=== PATIENT | male | born 2000 | race Caucasian/White ===

== ENCOUNTER 2021-12-10 15:48 | Emergency (ER) | payer SELFPAY ==
[~2021-12-10] VITALS: Ht 175.2 cm; Wt 61.2 kg
[2021-12-10] MEDS ORDERED: ONDANSETRON 4 MG/2 ML (SDV) Z0FRAN IVP ONE ×2 (16:15)
[2021-12-10] MEDS ORDERED: NS IV 1000 ML 1,000 ML IV SCH ×2 (16:15)
[2021-12-10] MEDS ORDERED: fentaNYL INJ 100 MCG/2 ML AMP IVP ONE ×2 (16:15)
[2021-12-10 16:20] LABS: HEMATOCRIT 39 % (40-54); HEMOGLOBIN 13.1 g/dL (13.3-17.7); MEAN CORPUSCULAR HEMOGLOBIN 31 pg (25-34); MEAN CORPUSCULAR HGB CONC 33 g/dL (32-36); MEAN CORPUSCULAR VOLUME 92 fL (80-99); MEAN PLATELET VOLUME 10.6 fL (9.0-12.2); PLATELET COUNT 260 10^3/uL (130-400); WHITE BLOOD COUNT 14.6 10^3/uL (4.3-11.0)
[2021-12-10] MEDS ORDERED: IOHEXOL 350 MG/ML 100 ML (OMNIPAQUE 350) VIAL IV ONE (16:30)
[2021-12-10] MEDS ORDERED: NS 100 ML (IVPB) BAG IV ONE (16:30)
[2021-12-10 16:36] LABS: ALBUMIN 3.8 GM/DL (3.2-4.5); CHLORIDE 107 MMOL/L (98-107); POTASSIUM 3.8 MMOL/L (3.6-5.0); SODIUM 143 MMOL/L (135-145)
[2021-12-10 16:37] LABS: CALCIUM 8.9 MG/DL (8.5-10.1)
[2021-12-10 16:38] LABS: GLUCOSE 122 MG/DL (70-105); TOTAL PROTEIN 6.1 GM/DL (6.4-8.2)
[2021-12-10 16:39] LABS: CARBON DIOXIDE 26 MMOL/L (21-32)
[2021-12-10 16:40] LABS: BILIRUBIN,TOTAL 0.4 MG/DL (0.1-1.0)
[2021-12-10 16:42] LABS: ALKALINE PHOSPHATASE 78 U/L (40-136); CREATININE SERUM 0.78 MG/DL (0.60-1.30); GFR ESTIMATED 129
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
[2021-12-10 16:43] LABS: BILIRUBIN,DIRECT 0.2 MG/DL (0.0-0.3); BILIRUBIN,INDIRECT 0.2 MG/DL; BUN/CREATININE RATIO 15
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
[2021-12-10 16:45] LABS: ALANINE AMINOTRANSFERASE 61 U/L (0-55)
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
[2021-12-10] MEDS ORDERED: morphine INJ 10 MG/ML 1ML (SYR OR VIAL) IVP STA (17:11)
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
[2021-12-10 17:29] LABS: AMPHETAMINE SCREEN, URINE POSITIVE (NEGATIVE); BARBITURATE SCREEN URINE NEGATIVE (NEGATIVE); BENZODIAZEPINES SCREEN URINE NEGATIVE (NEGATIVE); CANNABINOID SCREEN, URINE POSITIVE (NEGATIVE); COCAINE SCREEN URINE NEGATIVE (NEGATIVE); METHADONE STAT NEGATIVE (NEGATIVE); OPIATE SCREEN URINE NEGATIVE (NEGATIVE); OXYCODONE STAT NEGATIVE (NEGATIVE); PROPOXYPHENE STAT NEGATIVE (NEGATIVE); TRICYCLIC ANTIDEPRESSANTS SCRE NEGATIVE (NEGATIVE)
[2021-12-10 17:32] LABS: CLARITY,URINE CLEAR; COLOR,URINE YELLOW; GLUCOSE, URINE (UA) NEGATIVE (NEGATIVE); KETONES,URINE NEGATIVE (NEGATIVE); PH,URINE 6.5 (5-9); PROTEIN,URINE NEGATIVE (NEGATIVE)
[2021-12-10 17:33] LABS: BACTERIA,URINE NEGATIVE /HPF; BILIRUBIN,URINE NEGATIVE (NEGATIVE); LEUKOCYTE ESTERASE ,URINE TRACE (NEGATIVE); NITRITE,URINE NEGATIVE (NEGATIVE); RBC,URINE 0-2 /HPF
[2021-12-10] MEDS ORDERED: ACHD5005 PO (17:54)
[2021-12-10 18:19] VITALS: BP 151/101
== END 2021-12-10 18:19 | disposition home or self-care (01) ==
LOC: ER 16:04
DX: S09.90XA Unspecified injury of head, initial encounter (principal); S92.111A Displaced fracture of neck of right talus, initial encounter for closed fracture; S41.011A Laceration without foreign body of right shoulder, initial encounter; S00.83XA Contusion of other part of head, initial encounter; S00.11XA Contusion of right eyelid and periocular area, initial encounter; S30.810A Abrasion of lower back and pelvis, initial encounter; S50.311A Abrasion of right elbow, initial encounter; S50.312A Abrasion of left elbow, initial encounter; S60.511A Abrasion of right hand, initial encounter; S60.512A Abrasion of left hand, initial encounter; S70.311A Abrasion, right thigh, initial encounter; S20.311A Abrasion of right front wall of thorax, initial encounter; S90.512A Abrasion, left ankle, initial encounter; S90.812A Abrasion, left foot, initial encounter; S90.811A Abrasion, right foot, initial encounter; Z28.310 Unvaccinated for COVID-19; V48.6XXA Car passenger injured in noncollision transport accident in traffic accident, initial encounter; Y92.410 Unspecified street and highway as the place of occurrence of the external cause
CPT/HCPCS: 70450; 71045; 72125; 72128; 72170; 73610; 74177; 80048; 80076; 80306; 81000; 85027; 86850; 86900; 86901; 93041; 99283; G0480; L2114; 36415; 80320

== ENCOUNTER 2021-12-18 14:50 | Emergency (ER) | payer SELFPAY ==
[~2021-12-18 14:50] MED LIST: ACHD5005 PO
== END 2021-12-18 15:10 | disposition left against medical advice (07) ==
LOC: EDUNIT# 14:50 → ER 14:54
DX: Z47.89 Encounter for other orthopedic aftercare (principal)

== ENCOUNTER → 2021-12-26 | Outpatient (CLI) | payer OTHER ==
--- NOTE | 2021-12-26 10:17 | Diagnostic Imaging Report ---
INDICATION: Followup ankle fracture. COMPARISON: 12/10/2021 FINDINGS: Multiple radiographic views of the right ankle were obtained. Again identified is extraosseous calcification along the dorsal margins of the talar neck only well visualized on the lateral view. This is stable compared to prior exam. Overlying soft tissue swelling is slightly improved. No new acute osseous abnormalities seen. Joint spaces are maintained. No unexpected radiopaque foreign bodies are identified. IMPRESSION: 1. Improved soft tissue swelling. 2. Redemonstration stable extraosseous calcification along the dorsum of the talar neck. Dictated by: Dictated on workstation # [id number]
== END ==
LOC: ORTHO 09:08
PROVIDERS: ATTEND Orthopaedic Surgery
DX: S82.91XA Unspecified fracture of right lower leg, initial encounter for closed fracture (principal); X58.XXXA Exposure to other specified factors, initial encounter
CPT/HCPCS: 73610; G0463; 99203

== ENCOUNTER 2022-03-17 16:51 | Observation (INO) | payer OTHER ==
[~2022-03-17] VITALS: Ht 175.3 cm; Wt 65.7 kg
[2022-03-17] MEDS ORDERED: NS IV 1000 ML 1,000 ML IV SCH (17:45)
[2022-03-17 18:07] LABS: BASOPHILS % (AUTO) 1 % (0-10); EOSINOPHILS # (AUTO) 0.2 10^3/uL (0.0-0.3); EOSINOPHILS % (AUTO) 4 % (0-10); HEMATOCRIT 42 % (40-54); HEMOGLOBIN 14.2 g/dL (13.3-17.7); LYMPHOCYTES # (AUTO) 1.3 10^3/uL (1.0-4.0); LYMPHOCYTES % (AUTO) 25 % (12-44); MEAN CORPUSCULAR HEMOGLOBIN 30 pg (25-34); MEAN CORPUSCULAR HGB CONC 34 g/dL (32-36); MEAN CORPUSCULAR VOLUME 89 fL (80-99); MONOCYTES # (AUTO) 0.3 10^3/uL (0.0-1.0); MONOCYTES % (AUTO) 5 % (0-12); NEUTROPHILS # (AUTO) 3.5 10^3/uL (1.8-7.8); NEUTROPHILS % (AUTO) 66 % (42-75); PLATELET COUNT 239 10^3/uL (130-400); WHITE BLOOD COUNT 5.3 10^3/uL (4.3-11.0)
--- NOTE | 2022-03-17 18:12 | ED Neurological Problem ---
General Chief Complaint: Overdose Stated Complaint: OVERDOSE Nursing Triage Note: PT TO TRIAGE BY WHEELCHAIR WITH COMPLAINT OF OVERDOSE. STATES HE TOOK A BUNCH OF XANAX PILLS THAT COULDVE BEEN LACED WITH FENTANL. FRIENDS TOLD HIM THAT HE NEEDED TO COME TO ER BEFORE THINGS GOT WORSE. Source: patient Exam Limitations: clinical condition, intoxication (PRATEEK MIRAMONTES APRN) History of Present Illness Date Seen by Provider: Mar 17, 2022 Time Seen by Provider: 17:40 Initial Comments Patient is a 21-year-old male who presents to the ED via private vehicle with reports of an overdose. Patient told nursing staff that this was not a suicide attempt. Patient also has cuts to left arm. Some of the cuts appeared to be new within the last day or 2. These cuts are superficial. Some the cuts are much older and healed. Patient also has some cuts on his abdomen due to writing on his skin. These cuts are also superficial. This provider had to sternal rub patient in order to wake him up. Patient is very lethargic. Patient was eventually able to tell this provider that he took 4 Xanax of unknown dose last night, and he took 5-6 600 mg gabapentin today. Unable to obtain more informati on from patient at this time. Pt is oriented to self, date and place. Timing/Duration: unknown Severity: moderate Associated Symptoms: confusion, sleepy (PRATEEK MIRAMONTES APRN) Allergies and Home Medications Allergies Coded Allergies: No Known Drug Allergies (Unverified , 12/10/21) Patient Home Medication List Home Medication List Reviewed: No (unable to obtain) (PRATEEK MIRAMONTES APRN) Hydrocodone/Acetaminophen (Hydrocodone-Acetamin 5-325 mg) 5 Mg-325 Mg Tablet, 1 TAB PO Q6H PRN for PAIN-MODERATE (5-7) Prescribed by: AKIRA AGUILERA on 12/10/21 4616 Review of Systems Review of Systems Constitutional: see HPI (PRATEEK MIRAMONTES APRN) Past Kukiegq-Xfbvkz-Ofiyhq Hx Patient Social History Tobacco Use?: Yes Tobacco type used: Cigarettes Use of E-Cig and/or Vaping dev: No Substance use?: Yes Substance type: Methamphetamine, Opiates/Opioids Additional substance use comme: XANAX, PERCOCET Substance frequency: Daily Alcohol Use?: Yes Alcohol Frequency: Once in a while Pt feels they are or have been: No (PRATEEK MIRAMONTES APRN) Immunizations Up To Date First/Initial COVID19 Vaccinat: NONE Second COVID19 Vaccination Sebastien: NONE Third COVID19 Vaccination Date: NONE (PRATEEK MIRAMONTES APRN) Physical Exam Vital Signs Vital Signs - First Documented 03/17/22 16:53 Pulse 109 Resp 16 B/P (MAP) 132/81 (98) Pulse Ox 97 O2 Delivery Room Air (SRINIVASA MORALES MD) Vital Signs Capillary Refill : Less Than 3 Seconds (PRATEEK MIRAMONTES APRN) Height, Weight, BMI Height: '" Weight: lbs. oz. kg; 21.00 BMI Method: General Appearance: no apparent distress HEENT: other (nystagmus) Neck: supple, normal inspection Respiratory: chest non-tender, lungs clear, normal breath sounds, no respiratory distress, no accessory muscle use Cardiovascular: regular rate, rhythm, no edema, no gallop, no JVD, no murmur Extremities: normal range of motion, non-tender, other (superficial lacerations left arm) Neurologic/Psychiatric: other (lethargic) Skin: tattoos/piercings, other (superficial lacerations to left arm) (PRATEEK MIRAMONTES APRN) Progress/Results/Core Measures Results/Orders Lab Results Laboratory Tests Test 03/17/22 17:54 03/17/22 19:18 03/17/22 19:51 Range/Units White Blood Count 5.3 4.3-11.0 10^3/uL Red Blood Count 4.72 4.30-5.52 10^6/uL Hemoglobin 14.2 13.3-17.7 g/dL Hematocrit 42 40-54 % Mean Corpuscular Volume 89 80-99 fL Mean Corpuscular Hemoglobin 30 25-34 pg Mean Corpuscular Hemoglobin Concent 34 32-36 g/dL Red Cell Distribution Width 13.2 10.0-14.5 % Platelet Count 239 130-400 10^3/uL Mean Platelet Volume 10.0 9.0-12.2 fL Immature Granulocyte % (Auto) 0 % Neutrophils (%) (Auto) 66 42-75 % Lymphocytes (%) (Auto) 25 12-44 % Monocytes (%) (Auto) 5 0-12 % Eosinophils (%) (Auto) 4 0-10 % Basophils (%) (Auto) 1 0-10 % Neutrophils # (Auto) 3.5 1.8-7.8 10^3/uL Lymphocytes # (Auto) 1.3 1.0-4.0 10^3/uL Monocytes # (Auto) 0.3 0.0-1.0 10^3/uL Eosinophils # (Auto) 0.2 0.0-0.3 10^3/uL Basophils # (Auto) 0.0 0.0-0.1 10^3/uL Immature Granulocyte # (Auto) 0.0 0.0-0.1 10^3/uL Sodium Level 142 135-145 MMOL/L Potassium Level 4.1 3.6-5.0 MMOL/L Chloride Level 109 H 98-107 MMOL/L Carbon Dioxide Level 24 21-32 MMOL/L Anion Gap 9 5-14 MMOL/L Blood Urea Nitrogen 16 7-18 MG/DL Creatinine 1.05 0.60-1.30 MG/DL Estimat Glomerular Filtration Rate 102 BUN/Creatinine Ratio 15 Glucose Level 89 70-105 MG/DL Calcium Level 9.7 8.5-10.1 MG/DL Corrected Calcium 9.4 8.5-10.1 MG/DL Total Bilirubin 0.4 0.1-1.0 MG/DL Aspartate Amino Transf (AST/SGOT) 31 5-34 U/L Alanine Aminotransferase (ALT/SGPT) 30 0-55 U/L Alkaline Phosphatase 97 40-136 U/L Total Protein 7.0 6.4-8.2 GM/DL Albumin 4.4 3.2-4.5 GM/DL Salicylates Level < 5.0 L 5.0-20.0 MG/DL Acetaminophen Level < 10 L 10-30 UG/ML Serum Alcohol < 10 <10 MG/DL Urine Color YELLOW Urine Clarity CLEAR Urine pH 6.0 5-9 Urine Specific [place] >=1.030 1.016-1.022 Urine Protein 1+ H NEGATIVE Urine Glucose (UA) NEGATIVE NEGATIVE Urine Ketones TRACE H NEGATIVE Urine Nitrite NEGATIVE NEGATIVE Urine Bilirubin 1+ H NEGATIVE Urine Urobilinogen 1.0 < = 1.0 MG/DL Urine Leukocyte Esterase NEGATIVE NEGATIVE Urine RBC (Auto) NEGATIVE NEGATIVE Urine RBC NONE /HPF Urine WBC NONE /HPF Urine Squamous Epithelial Cells NONE /HPF Urine Renal Epithelial Cells NONE /HPF Urine Crystals NONE /LPF Urine Bacteria NEGATIVE /HPF Urine Casts NONE /LPF Urine Mucus MODERATE H /LPF Urine Culture Indicated NO Urine Opiates Screen NEGATIVE NEGATIVE Urine Oxycodone Screen NEGATIVE NEGATIVE Urine Methadone Screen NEGATIVE NEGATIVE Urine Propoxyphene Screen NEGATIVE NEGATIVE Urine Barbiturates Screen NEGATIVE NEGATIVE Ur Tricyclic Antidepressants Screen NEGATIVE NEGATIVE Urine Phencyclidine Screen NEGATIVE NEGATIVE Urine Amphetamines Screen POSITIVE H NEGATIVE Urine Methamphetamines Screen POSITIVE H NEGATIVE Urine Benzodiazepines Screen POSITIVE H NEGATIVE Urine Cocaine Screen NEGATIVE NEGATIVE Urine Cannabinoids Screen POSITIVE H NEGATIVE Blood Gas Puncture Site R RADIAL Blood Gas Patient Temperature 36.3 Arterial Blood pH 7.34 *L 7.37-7.43 Arterial Blood Partial Pressure CO2 42 35-45 MMHG Arterial Blood Partial Pressure O2 96 H 79-93 MMHG Arterial Blood HCO3 22 L 23-27 MMOL/L Arterial Blood Total CO2 23.7 21.0-31.0 MMOL/L Arterial Blood Oxygen Saturation 99 94-100 % Arterial Blood Base Excess -2.6 L -2.5-2.5 MMOL/L Naren Test YES-POS Blood Gas Ventilator Setting NO Blood Gas Inspired Oxygen ROOM AIR (SRINIVASA MORALES MD) Vital Signs/I&O 03/17/22 16:53 Pulse 109 Resp 16 B/P (MAP) 132/81 (98) Pulse Ox 97 O2 Delivery Room Air (SRINIVASA MORALES MD) Blood Pressure Mean: 98 Progress Progress Note : Time: 18:00 Progress Note Spoke with poison control who recommended watching for VARIOUS EXCEPTIONALITIES TEACHER depression. Patient on equipment monitor phototypesetting with CO2 of 33. Due to difficulty with obtaining history from patient, poison control recommends monitoring patient for several hours until symptoms improve. We will also treat patient as a low risk suicide risk due to nature of his presentation as well as superficial cuts on his arm. Further evaluation will be needed after symptom improvement to determine his suicide risk. (PRATEEK MIRAMONTES APRN) Initial ECG Impression Date: Mar 17, 2022 Initial ECG Impression Time: 18:00 Initial ECG Rhythm: Normal Sinus Initial ECG Intervals: Normal Initial ECG Impression: Normal Initial ECG Comparisson: No Previous ECG Available (PRATEEK MIRAMONTES APRN) Departure Communication (Admissions) Time/Spoke to Admitting Phy: 19:[address] Sands. She requested ABGs which will be obtained. Admission bed will be determined based on ABGs. We will inform Dr. Sands of ABGs once they are resulted. 2001: ABGs resulted. Results communicated to Dr. Sands. Dr. Sands will admit to ICU. (PRATEEK MIRAMONTES APRN) Impression Primary Impression: Drug overdose Qualified Codes: T50.901A - Poisoning by unspecified drugs, medicaments and biological substances, accidental (unintentional), initial encounter Additional Impressions: Acidosis Altered mental state Qualified Codes: R41.0 - Disorientation, unspecified Disposition: ADMITTED INPATIENT Condition: Stable Admissions Decision to Admit Reason: Admit from ER (General) Decision to Admit/Date: Mar 17, 2022 Time/Decision to Admit Time: 20:05 (PRATEEK MIRAMONTES APRN) Departure-Patient Inst. Referrals: NO,LOCAL PHYSICIAN (PCP/Family) Primary Care Physician Patient Instructions: ALCOHOL AND SUBSTANCE ABUSE PHYSICIAN ATTESTATION NOTE: I was present in the ER while OIL LEASE BUYER / PA saw the patient, but I was not involved in the care, exam, or management of the patient. (SRINIVASA MORALES MD) PRATEEK MIRAMONTES APRN Mar 17, 2022 18:12 SRINIVASA MORALES MD Mar 19, 2022 06:55
[2022-03-17 18:24] LABS: ALBUMIN 4.4 GM/DL (3.2-4.5); CHLORIDE 109 MMOL/L (98-107); POTASSIUM 4.1 MMOL/L (3.6-5.0); SODIUM 142 MMOL/L (135-145)
[2022-03-17 18:26] LABS: CALCIUM 9.7 MG/DL (8.5-10.1)
[2022-03-17 18:27] LABS: GLUCOSE 89 MG/DL (70-105)
[2022-03-17 18:28] LABS: CARBON DIOXIDE 24 MMOL/L (21-32)
[2022-03-17 18:29] LABS: BILIRUBIN,TOTAL 0.4 MG/DL (0.1-1.0)
[2022-03-17 18:31] LABS: ALKALINE PHOSPHATASE 97 U/L (40-136); CREATININE SERUM 1.05 MG/DL (0.60-1.30); GFR ESTIMATED 102
[2022-03-17 18:32] LABS: ACETAMINOPHEN < 10 UG/ML (10-30); BUN/CREATININE RATIO 15
[2022-03-17 18:33] LABS: SALICYLATE < 5.0 MG/DL (5.0-20.0)
[2022-03-17 18:34] LABS: ALANINE AMINOTRANSFERASE 30 U/L (0-55)
[2022-03-17 19:32] LABS: BILIRUBIN,URINE 1+ (NEGATIVE); CLARITY,URINE CLEAR; COLOR,URINE YELLOW; GLUCOSE, URINE (UA) NEGATIVE (NEGATIVE); KETONES,URINE TRACE (NEGATIVE); LEUKOCYTE ESTERASE ,URINE NEGATIVE (NEGATIVE); NITRITE,URINE NEGATIVE (NEGATIVE); PROTEIN,URINE 1+ (NEGATIVE)
[2022-03-17 19:46] LABS: BACTERIA,URINE NEGATIVE /HPF
[2022-03-17 19:49] LABS: AMPHETAMINE SCREEN, URINE POSITIVE (NEGATIVE); BARBITURATE SCREEN URINE NEGATIVE (NEGATIVE); BENZODIAZEPINES SCREEN URINE POSITIVE (NEGATIVE); CANNABINOID SCREEN, URINE POSITIVE (NEGATIVE); COCAINE SCREEN URINE NEGATIVE (NEGATIVE); METHADONE STAT NEGATIVE (NEGATIVE); OPIATE SCREEN URINE NEGATIVE (NEGATIVE); OXYCODONE STAT NEGATIVE (NEGATIVE); PROPOXYPHENE STAT NEGATIVE (NEGATIVE); TRICYCLIC ANTIDEPRESSANTS SCRE NEGATIVE (NEGATIVE)
[2022-03-17 19:58] LABS: ABG BASE EXCESS -2.6 MMOL/L (-2.5-2.5); ABG OXYGEN SATURATION 99 % (94-100); ABG PCO2 42 MMHG (35-45); ABG PH 7.34 (7.37-7.43); ABG PO2 96 MMHG (79-93); ABG TCO2 23.7 MMOL/L (21.0-31.0); ALLENS TEST YES-POS
[2022-03-17 19:59] LABS: INSPIRED O2 ROOM AIR; PATIENT TEMP 36.3; VENTILATOR NO
[2022-03-17 21:02] VITALS: BP 104/65
--- NOTE | 2022-03-18 04:38 | Short Stay Summary-Hospitalist ---
History of Present Illness HPI/Chief Complaint not seen before leaving [facility] Source: patient Date Seen 03/18/22 Time Seen by a Provider: 00:00 Attending Physician No,Local Physician PCP Admitting Physician: Regina Sands DO Attending Physician: Regina Sands DO Referring Physician Date of Admission Mar 17, 2022 at 20:24 Home Medications & Allergies Home Medications Reviewed patient Home Medication Reconciliation performed by pharmacy medication reconciliations vtc technician and/or nursing. Patients Allergies have been reviewed. Allergies Allergies Coded Allergies No Known Drug Allergies (Unverified12/10/21) Past Dwxshlg-Ewvpxd-Yxpzkf Hx Patient Social History Tobacco Use?: Yes Tobacco type used: Cigarettes Use of E-Cig and/or Vaping dev: No Substance use?: Yes Substance type: Methamphetamine, Opiates/Opioids Additional substance use comme: XANAX, PERCOCET Substance frequency: Daily Alcohol Use?: Yes Alcohol Frequency: Once in a while Pt feels they are or have been: No Immunizations Up To Date First/Initial COVID19 Vaccinat: NONE Second COVID19 Vaccination Sebastien: NONE Tetanus Booster (TDap): Less Than 5 Years Current Status Advance Directives: No Primary Language: Bengali Preferred Spoken Language: Bengali Review of Systems ROS-Unable to Obtain: not seen before leaving [facility] Constitutional: see HPI Physical Exam Physical Exam Vital Signs Vital Signs - First Documented 03/17/22 03/17/22 16:53 21:02 Temp 36.3 Pulse 109 Resp 16 B/P (MAP) 132/81 (98) Pulse Ox 97 O2 Delivery Room Air Capillary Refill : Less Than 3 Seconds Height, Weight, BMI Height: '" Weight: lbs. oz. kg; 21.00 BMI Method: General Appearance: Other (not seen before leaving [facility]) Results Results/Procedures Labs Laboratory Tests 03/17/22 17:54 Patient resulted labs reviewed. Short Stay Diagnosis Discharge Diagnosis-Short Stay Admission Diagnosis not seen before leaving [facility] Final Discharge Diagnosis not seen before leaving [facility] Conclusion Plan not seen before leaving [facility] REGINA SANDS DO Mar 18, 2022 04:38
== END 2022-03-17 21:23 | disposition left against medical advice (07) ==
LOC: EDUNIT# 16:51 → ER 16:53 → ICU 20:24
PROVIDERS: ADMIT Internal Medicine; ATTEND Internal Medicine
DX: T42.4X4A Poisoning by benzodiazepines, undetermined, initial encounter (principal); R41.0 Disorientation, unspecified; Z53.21 Procedure and treatment not carried out due to patient leaving prior to being seen by health care provider; Z28.310 Unvaccinated for COVID-19; F17.210 Nicotine dependence, cigarettes, uncomplicated
CPT/HCPCS: 36600; 80053; 80306; 81000; 82805; 85025; 93005; 93041; 99291; G0480 ×3; 36415; 80320; 80329

== ENCOUNTER 2022-05-17 12:31 | Emergency (ER) | payer OTHER ==
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
[2022-05-17] MEDS ORDERED: IBUPROFEN 600 MG (MOTRIN) TAB PO ONE (13:15)
--- NOTE | 2022-05-17 13:16 | Diagnostic Imaging Report ---
Indication: Left ankle injury with pain and swelling. Comparison: None. Discussion: Three views of the left ankle were obtained. Tiny acute avulsion fracture arising from the distal tip of the medial malleolus. The ankle mortise is symmetric. Soft tissue swelling noted. No dislocation. No foreign body. Impression: 1. Acute appearing avulsion fracture arising from the distal tip of the medial malleolus. Dictated by: Dictated on workstation # [id number]
[2022-05-17] MEDS ORDERED: IBUP-1773 PO (13:42)
[2022-05-17] MEDS ORDERED: ACHD5005 PO (13:43)
[2022-05-17 13:49] VITALS: BP 116/66
== END 2022-05-17 13:50 | disposition home or self-care (01) ==
LOC: EDUNIT# 12:31 → ER 12:34
DX: S82.52XA Displaced fracture of medial malleolus of left tibia, initial encounter for closed fracture (principal); F17.210 Nicotine dependence, cigarettes, uncomplicated; V28.09XA Other motorcycle driver injured in noncollision transport accident in nontraffic accident, initial encounter; Y92.410 Unspecified street and highway as the place of occurrence of the external cause
CPT/HCPCS: 73610; 99283; L2114

== ENCOUNTER 2022-07-02 03:58 | Emergency (ER) | payer OTHER ==
[~2022-07-02] VITALS: Ht 175.3 cm; Wt 65.8 kg
[~2022-07-02 03:58] MED LIST changes: +IBUP-1773 PO
[2022-07-02] MEDS ORDERED: fentaNYL INJ 100 MCG/2 ML AMP IVP STA ×2 (04:11→05:09)
[2022-07-02] MEDS ORDERED: ceFAZolin INJECTION 2,000 MG in NS (IVPB) 50 ML IV STA (04:11)
[2022-07-02] MEDS ORDERED: TETANUS,DIPTH,PERTUSS P/F (BOOSTRIX) 0.5 ML VIAL IM ONE (04:15)
[2022-07-02] MEDS ORDERED: NS IV 1000 ML 1,000 ML IV SCH ×2 (04:15→05:30)
[2022-07-02] MEDS ORDERED: LIDOCAINE UROJET 2% GEL 10 ML PKG TOP ONE (04:15)
[2022-07-02 04:32] LABS: HEMATOCRIT 39 % (40-54); MEAN CORPUSCULAR HEMOGLOBIN 31 pg (25-34); MEAN CORPUSCULAR HGB CONC 34 g/dL (32-36); MEAN CORPUSCULAR VOLUME 91 fL (80-99); MEAN PLATELET VOLUME 9.4 fL (9.0-12.2); PLATELET COUNT 327 10^3/uL (130-400); WHITE BLOOD COUNT 12.2 10^3/uL (4.3-11.0)
[2022-07-02 04:43] LABS: CALCIUM 8.6 MG/DL (8.5-10.1); PHOSPHORUS 3.2 MG/DL (2.3-4.7); POTASSIUM 3.4 MMOL/L (3.6-5.0)
[2022-07-02 04:44] LABS: CREATININE SERUM 0.98 MG/DL (0.60-1.30)
[2022-07-02 04:53] LABS: PROTHROMBIN TIME PATIENT 13.6 SEC (12.2-14.7)
[2022-07-02 04:54] LABS: FIBRIN DEGRADATION PRODUCTS 0.42 UG/ML (0.00-0.49)
[2022-07-02 05:02] LABS: CREATINE KINASE MB 7.4 NG/ML (<6.6)
[2022-07-02 05:11] LABS: ALBUMIN 4.3 GM/DL (3.2-4.5)
[2022-07-02 05:14] LABS: TOTAL PROTEIN 6.7 GM/DL (6.4-8.2)
[2022-07-02 05:16] LABS: BILIRUBIN,TOTAL 0.6 MG/DL (0.1-1.0)
[2022-07-02 05:19] LABS: CREATINE KINASE 1146 U/L (30-200)
[2022-07-02 05:20] LABS: BILIRUBIN,DIRECT 0.3 MG/DL (0.0-0.3); BILIRUBIN,INDIRECT 0.3 MG/DL; MAGNESIUM 2.4 MG/DL (1.6-2.4)
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
[2022-07-02 05:40] LABS: BILIRUBIN,URINE NEGATIVE (NEGATIVE); CLARITY,URINE CLEAR; COLOR,URINE DARK YELLOW; GLUCOSE, URINE (UA) NEGATIVE (NEGATIVE); KETONES,URINE TRACE (NEGATIVE); LEUKOCYTE ESTERASE ,URINE NEGATIVE (NEGATIVE); NITRITE,URINE NEGATIVE (NEGATIVE); PROTEIN,URINE 1+ (NEGATIVE)
[2022-07-02 05:50] LABS: BACTERIA,URINE NEGATIVE /HPF; HYALINE CASTS, URINE 0-2 /LPF
[2022-07-02 05:53] LABS: AMORPHOUS SEDIMENT,UR FEW AMOR PHOSPHATE /LPF
[2022-07-02 05:55] LABS: AMPHETAMINE SCREEN, URINE POSITIVE (NEGATIVE); BARBITURATE SCREEN URINE NEGATIVE (NEGATIVE); BENZODIAZEPINES SCREEN URINE NEGATIVE (NEGATIVE); CANNABINOID SCREEN, URINE POSITIVE (NEGATIVE); COCAINE SCREEN URINE NEGATIVE (NEGATIVE); METHADONE STAT NEGATIVE (NEGATIVE); OPIATE SCREEN URINE NEGATIVE (NEGATIVE); OXYCODONE STAT NEGATIVE (NEGATIVE); PROPOXYPHENE STAT NEGATIVE (NEGATIVE); TRICYCLIC ANTIDEPRESSANTS SCRE NEGATIVE (NEGATIVE)
[2022-07-02] MEDS ORDERED: morphine INJ 10 MG/ML 1ML (SYR OR VIAL) IVP STA (06:10)
[2022-07-02] MEDS ORDERED: morphine INJ 10 MG/ML 1ML (SYR OR VIAL) ONE (06:11)
[2022-07-02 06:17] VITALS: BP 141/89
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
== END 2022-07-02 06:17 | disposition short-term general hospital (02) ==
LOC: EDUNIT# 03:58 → ER 04:00
DX: S42.401B Unspecified fracture of lower end of right humerus, initial encounter for open fracture (principal); S52.101 Unspecified fracture of upper end of right radius; S52.001B Unspecified fracture of upper end of right ulna, initial encounter for open fracture type I or II; F10.129 Alcohol abuse with intoxication, unspecified; F15.129 Other stimulant abuse with intoxication, unspecified; F12.90 Cannabis use, unspecified, uncomplicated; F19.10 Other psychoactive substance abuse, uncomplicated; Z18.10 Retained metal fragments, unspecified; F17.210 Nicotine dependence, cigarettes, uncomplicated; Z23 Encounter for immunization; Z28.310 Unvaccinated for COVID-19; W34.00XA Accidental discharge from unspecified firearms or gun, initial encounter
CPT/HCPCS: 29105; 71046; 73060; 73090; 80048; 80076; 80306; 81000; 82550; 82553; 83735; 84100; 84484; 85027; 85379; 85384; 85610; 85730; 86850; 86900; 86901; 93005; 93041; 99292; G0390; G0480 ×2; 36415; 80320; 80329; 90715; 99291